=== PATIENT | female | born 1990 | race Caucasian/White ===

== ENCOUNTER 2022-01-29 08:30 | Day surgery (SDC) | payer MEDICAID ==
[~2022-01-29 08:30] MED LIST: Lactated Ringers 1,000 ML IV SCH; Sodium Chloride 0.9% 10 ML Syringe FLUSH PRN; Sodium Chloride 0.9% 2.5 ML Syringe FLUSH PRN; Sodium Chloride 0.9% 20 ML SDV IV PRN
[2022-01-29] MEDS ORDERED: Propofol 200 MG/20 ML SDV ONE (09:52)
[2022-01-29] MEDS ORDERED: Midazolam 1 MG/ML 2 ML SDV ONE (09:53)
[2022-01-29] MEDS ORDERED: Lidocaine 2% 5 ML SDV ONE (11:26)
[2022-01-29] MEDS ORDERED: fentaNYL 100 MCG/2 ML SDV ONE (11:28)
== END 2022-01-29 12:15 | disposition home or self-care (01) ==
LOC: MW.SDS 08:30
PROVIDERS: ATTEND Surgery
DX: K29.50 Unspecified chronic gastritis without bleeding (principal); K21.00 Gastro-esophageal reflux disease with esophagitis, without bleeding; K31.89 Other diseases of stomach and duodenum; F17.210 Nicotine dependence, cigarettes, uncomplicated; E66.9 Obesity, unspecified; Z68.39 Body mass index [BMI] 39.0-39.9, adult; Z86.79 Personal history of other diseases of the circulatory system; Z87.19 Personal history of other diseases of the digestive system
CPT/HCPCS: 43239; 81025; J2250; J2704; J3010; J7120; 00731

== ENCOUNTER 2022-05-07 10:36 | Day surgery (SDC) | payer MEDICAID ==
[~2022-05-07 10:36] MED LIST changes: +Albuterol 0.083% 2.5 MG/3 ML Neb Soln NEB PRN; +HYDROmorphone 1 MG/ML Syringe IVPUSH PRN; +Metoclopramide 10 MG/2 ML SDV IVPUSH PRN; +Morphine 4 MG/ML VIAL IVPUSH PRN; +Naloxone 0.4 MG/ML SDV IVPUSH PRN; +Ondansetron 4 MG/2 ML SDV IVPUSH PRN; +ceFAZolin 2 GM in Premix Bag 1 BAG IV ONE; +fentaNYL 100 MCG/2 ML SDV IVPUSH PRN
[2022-05-07] MEDS ORDERED: fentaNYL 100 MCG/2 ML SDV ONE (12:21)
[2022-05-07] MEDS ORDERED: Midazolam 1 MG/ML 2 ML SDV ONE (12:21)
[2022-05-07] MEDS ORDERED: Propofol 200 MG/20 ML SDV ONE ×2 (12:21→13:54)
[2022-05-07] MEDS ORDERED: Rocuronium 100 MG/10 ML MDV ONE (12:22)
[2022-05-07] MEDS ORDERED: Ketamine 500 mg/10 ML MDV ONE (12:22)
[2022-05-07] MEDS ORDERED: Octyl 2-Cyanoacrylate 1 Tube ONE (12:27)
[2022-05-07] MEDS ORDERED: Bupivacaine 0.5% 30 ML SDV ONE (12:27)
[2022-05-07] MEDS ORDERED: Indocyanine Green 25 MG SDV ONE (12:57)
[2022-05-07] MEDS ORDERED: Dexamethasone 4 MG/ML 5 ML MDV ONE (13:28)
[2022-05-07] MEDS ORDERED: Ketorolac 30 MG/ML SDV ONE (13:37)
[2022-05-07] MEDS ORDERED: Acetaminophen/oxyCODONE 325-5 MG Tab PO PRN (16:38)
== END 2022-05-07 17:13 | disposition home or self-care (01) ==
LOC: MW.SDS 10:36
PROVIDERS: ATTEND Surgery
DX: K80.10 Calculus of gallbladder with chronic cholecystitis without obstruction (principal); K21.9 Gastro-esophageal reflux disease without esophagitis; F17.200 Nicotine dependence, unspecified, uncomplicated; E66.9 Obesity, unspecified; Z79.899 Other long term (current) drug therapy; Z98.890 Other specified postprocedural states; Z68.39 Body mass index [BMI] 39.0-39.9, adult
CPT/HCPCS: 47562; 81025; A9270; J0131; J0690; J1100; J1885; J2250; J2405; J2704; J3010; J3490; J7120; 00790